=== PATIENT | male | born 1985 | race African-American/Black ===

== ENCOUNTER 2017-12-07 10:07 | Emergency (ER) | payer MEDICAID ==
[2017-12-07] MEDS ORDERED: predniSONE 20 MG TABLET PO STA (12:48)
[2017-12-07] MEDS ORDERED: diphenhydrAMINE 25 MG CAPSULE PO STA (12:49)
[2017-12-07 12:59] VITALS: BP 96/78
--- NOTE | 2017-12-07 13:02 | ED Physician Documentation ---
PD HPI SKIN - Stated complaint Stated Complaint: BEE STINGS - Chief complaint Chief Complaint: Wound - History obtained from History obtained from: Patient - History of Present Illness Timing - onset: How many weeks ago (1) Timing - details: Abrupt onset Quality / character: Itchy, Painful, Raised Associated symptoms: No: Fever Contributing factors: Insect bite /sting Similar symptoms before: No diagnosis Recently seen: Not recently seen - Additional information Additional information: Patient is a 32 year old male presenting to the emergency department for worsening rash secondary to bee stings. patient states that he was stung by multiple bees about a week ago. Patient states that the swelling has persisted. Patient had taken a motrin but had not taken any antihistamines. Review of Systems Constitutional: denies: Fever, Chills Respiratory: denies: Dyspnea, Cough, Wheezing PD PAST MEDICAL HISTORY - Past Medical History Past Medical History: No Cardiovascular: None Respiratory: None Endocrine/Autoimmune: None GI: None : None HEENT: None Psych: None Musculoskeletal: None Derm: None - Past Surgical History Past Surgical History: Yes Ortho: Knee replacement, Other - Present Medications Home Medications: Ambulatory Orders Medication Instructions Recorded Confirmed Cephalexin [Keflex] 500 mg PO Q6H 7 Days capsule 12/07/17 predniSONE [Prednisone] 40 mg PO DAILY 5 Days tablet 12/07/17 - Allergies Allergies/Adverse Reactions: Allergies Allergy/AdvReac Type Severity Reaction Status Date / Time shellfish derived Allergy Unknown Verified 12/07/17 10:14 - Social History Does the pt smoke?: Yes Smoking Status: Current every day smoker Does the pt drink ETOH?: Yes Does the pt have substance abuse?: No - Immunizations Immunizations are current?: No PD ED PE NORMAL - HEENT HEENT: Other (no facial swelling) - Cardiac Cardiac: RRR - Respiratory Respiratory: No respiratory distress, Clear bilaterally PD ED PE EXPANDED - Respiratory Respiratory: Clear to ausultation suzan. No: Distress, Labored, Stridor, Wheezing - Derm SKin visual: 1 - rash (erythema and induration and hives) Results - Vitals Vitals: Vital Signs - 24 hr 12/07/17 12/07/17 10:18 12:59 Temperature 36.5 C 36.8 C Heart Rate 66 69 Respiratory 16 16 Rate Blood Pressure 120/74 96/78 O2 Saturation 100 98 Oxygen O2 Source Room air PD MEDICAL DECISION MAKING - ED course Complexity details: reviewed old records, reviewed results, re-evaluated patient , considered differential, d/w patient ED course: Patient was seen and examined at bedside. patient had a diffuse rash on his right upper extremity. patient was treated with prednisone but was to take the benadryl at home so that he could drive. patient was given detailed discharge instructions including superimposed infection. Patient understood and was stable for discharge with outpatient follow up. - Sepsis Event Vital Signs: Vital Signs - 24 hr 12/07/17 12/07/17 10:18 12:59 Temperature 36.5 C 36.8 C Heart Rate 66 69 Respiratory 16 16 Rate Blood Pressure 120/74 96/78 O2 Saturation 100 98 Oxygen O2 Source Room air Departure - Departure Disposition: 01 Home, Self Care Clinical Impression: Allergic reaction to bee sting Condition: Good Instructions: ED Bite Insect Follow-Up: primary, care provider [Other] - As Needed Prescriptions: Cephalexin [Keflex] 500 mg PO Q6H 7 Days capsule predniSONE [Prednisone] 40 mg PO DAILY 5 Days tablet Comments: Your symptoms today are being caused by an allergic reaction. You have been prescribed a steroid and you can take benadryl every 6 hours. you have been prescribed and antibiotic if your symptoms don't improve and the area becomes more painful. You should return to the emergency department for worsening symptoms.
== END 2017-12-07 13:07 | disposition home or self-care (01) ==
LOC: ED 10:07
DX: T63.441A Toxic effect of venom of bees, accidental (unintentional), initial encounter (principal); R21 Rash and other nonspecific skin eruption; L53.9 Erythematous condition, unspecified; F17.200 Nicotine dependence, unspecified, uncomplicated
CPT/HCPCS: 99283; A9270; J7512

== ENCOUNTER 2018-05-23 20:06 | Outpatient (CLI) | payer MEDICAID | END 2018-05-23 20:07 | disposition critical access hospital (66) | LOC: EMS 20:06 | PROVIDERS: ATTEND Surgery | DX: M54.5 Low back pain (principal); M54.2 Cervicalgia; M25.562 Pain in left knee; W18.39XA Other fall on same level, initial encounter; Y93.01 Activity, walking, marching and hiking; Y92.480 Sidewalk as the place of occurrence of the external cause | CPT/HCPCS: A0425; A0429; A0999 ==

== ENCOUNTER 2018-05-23 20:22 | Emergency (ER) | payer MEDICAID ==
--- NOTE | 2018-05-23 20:32 | ED Physician Documentation ---
PD HPI Fall - Stated complaint Stated Complaint: GLF - History obtained from History obtained from: Patient, EMS - History of Present Illness Mechanism of injury: Tripped, Lost balance (he says he was walking on sidewalk and tripped/fell forward, striking hands and knees, chest and chin. Denies LOC. EMS found patient lying on sidewalk. Less responsive/alertness. Patient reported alcohol use this evening.) Timing - onset: How many hours ago (30), Today Injury(ies) location: Face, Chest, Right Upper Extremity, Left Uppper Extremity, Right Lower Extremity, Left Lower Extremity Quality of pain: Aching Associated symptoms: AMS (slurred speech and sleepy). No: LOC, Seizures, Weakness, Paresthesias, Nausea / vomiting Worsens with: Movement (of knees and hands, some pain with deep breathing on anterior chest. Pain in thoracolumbar area back with movement and breathing. Denies pain in neck.), Palpation Contributing factors: Intoxicated. No: Anticoagulated Similar symptoms before: Has not had sx before Recently seen: Not recently seen Review of Systems Unable to obtain: Intoxicated Constitutional: denies: Fever Throat: denies: Dental pain / toothache, Sore throat Cardiac: reports: Chest pain / pressure. denies: Palpitations Respiratory: denies: Dyspnea, Cough, Wheezing GI: denies: Abdominal Pain, Nausea, Vomiting, Diarrhea Neurologic: reports: Generalized weakness. denies: Focal weakness, Numbness, Headache PD PAST MEDICAL HISTORY - Past Medical History Cardiovascular: None Respiratory: None Endocrine/Autoimmune: None GI: None : None HEENT: None Psych: None Musculoskeletal: None Derm: None - Past Surgical History Past Surgical History: Yes Ortho: Knee replacement, Other - Allergies Allergies/Adverse Reactions: Allergies Allergy/AdvReac Type Severity Reaction Status Date / Time bee venom protein (honey bee) Allergy Unknown Verified 05/23/18 20:28 shellfish derived Allergy Unknown Verified 05/23/18 20:28 - Social History Does the pt smoke?: Yes Smoking Status: Current every day smoker Does the pt drink ETOH?: Yes Does the pt have substance abuse?: No - Immunizations Immunizations are current?: No PD ED PE NORMAL - Vitals Vital signs reviewed: Yes - General General: Alert and oriented X 3, Well developed/nourished, Other (sleepy but rousable. oriented to person and place, knows it is Suzanna. 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 ) - HEENT HEENT: Atraumatic, Other (chin with some tenderness and small abrasion. No dental injuries noted. ) - Neck Neck: Supple, no meningeal sign, No bony TTP, No adenopathy - Cardiac Cardiac: RRR, No murmur - Respiratory Respiratory: Clear bilaterally, Other (mild anterior chestwall tenderness without crepitance. ) - Abdomen Abdomen: Soft, Non tender, No organomegaly - Back Back: No CVA TTP, Other (tender at lower thoracic/upper lumbar back across the back. 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 Knees with some tenderness, no defromity nor effusion, and he has good ROM of them. ) - Neuro Neuro: No motor deficit, No sensory deficit, Normal speech. No: Alert and oriented X 3 (to person and place and that it is before Suzanna) Eye Opening: Spontaneous Motor: Obeys Commands Verbal: Confused GCS Score: 14 Results - Vitals Vitals: Vital Signs - 24 hr 05/23/18 05/23/18 05/23/18 20:23 20:32 23:18 Temperature 36.2 C L Heart Rate 93 93 81 Respiratory 18 18 19 Rate Blood Pressure 121/78 117/82 H 101/67 O2 Saturation 95 96 95 05/24/18 05/24/18 02:54 05:11 Temperature Heart Rate 88 90 Respiratory 14 16 Rate Blood Pressure 109/76 116/85 H O2 Saturation 99 99 Oxygen O2 Source Room air - Labs Labs: Laboratory Tests 05/23/18 05/23/18 20:49 20:49 WBC 9.1 RBC 5.36 Hgb 15.7 Hct 47.4 MCV 88.3 MCH 29.2 MCHC 33.0 RDW 14.9 Plt Count 215 MPV 8.9 Neut # (Auto) 5.7 Lymph # (Auto) 2.7 [place] # (Auto) 0.6 Eos # (Auto) 0.1 Baso # (Auto) 0.0 Absolute Nucleated RBC 0.00 Nucleated RBC % 0.0 Manual Slide Review Indicated Platelet Estimate NORMAL (130-450,000) Platelet Morphology 1+ GIANT PLATELETS RBC Morph Micro Appear NORMAL APPEARANCE Sodium 140 Potassium 3.6 Chloride 104 Carbon Dioxide 27 Anion Gap 9.0 BUN 10 Creatinine 0.7 Estimated GFR (MDRD) 158 Glucose 105 H Calcium 8.6 Total Bilirubin 0.4 AST 29 ALT 22 Alkaline Phosphatase 70 Total Protein 8.5 H Albumin 4.7 Globulin 3.8 Albumin/Globulin Ratio 1.2 Lipase 27 Ethyl Alcohol 401.0 - Rads (name of study) head and neck CT Radiology: Prelim report reviewed (no fractures nor bleeding. no acute process) trunk CT (chest/abd/pelvis Radiology: Prelim report reviewed (no noted fractures nor acute organ injuries. ) PD MEDICAL DECISION MAKING - ED course Complexity details: re-evaluated patient (He slept for several hours after his initial exam and CT scans did not show any significant injuries. He awoke conversant and appropriate. He states he had general aches all over. Reexam did not show any obvious tenderness to the abdomen or chest. He does feel able to be discharged. We will give him some Tylenol and have him use it regularly.), considered differential (intoxicated and fell without obvious serious injury. However hard to tell so will get imaging to ensure no significant injuries, while awaiting time for metabolism of his blood alcohol. ), d/w patient Departure - Departure Disposition: 01 Home, Self Care Clinical Impression: Alcohol intoxication, Fall from slip, trip, or stumble, Multiple contusions Condition: Stable Record reviewed to determine appropriate education?: Yes Instructions: ED Contusion Soft Tissue, ED Alcohol Intoxication Comments: Avoid excess alcohol. Drink lots of fluids. He apparently fell while heavily intoxicated and has some bruising to the arms and legs as well as chest and chin. Your CT scans did not show any obvious fractures or organ injury. He will likely be sore for several days. Use some Tylenol or ibuprofen 3 or 4 times a day as needed for pains. Return if worse symptoms or something new evolves. Discharge Date/Time: 05/24/18 05:33
[2018-05-23] MEDS ORDERED: SODIUM CHLORIDE 0.9% 1,000 ML IV ONE (20:33)
[2018-05-23 21:09] LABS: ALBUMIN 4.7 g/dL (3.2-5.5); ALBUMIN/GLOBULIN RATIO 1.2 (1.0-2.2); BILIRUBIN,TOTAL 0.4 mg/dL (0.2-1.0); CALCIUM 8.6 mg/dL (8.5-10.3); CREATININE 0.7 mg/dL (0.6-1.2); TOTAL PROTEIN 8.5 g/dL (6.7-8.2)
[2018-05-23 21:10] LABS: BASOPHILS % (AUTO) 0.2 %; EOSINOPHILS # (AUTO) 0.1 10^3/uL (0.0-0.7); EOSINOPHILS % (AUTO) 0.6 %; HGB - HEMOGLOBIN 15.7 g/dL (14.0-18.0); LYMPHOCYTES # (AUTO) 2.7 10^3/uL (1.5-3.5); LYMPHOCYTES % (AUTO) 30.1 %; MEAN CORPUSCULAR HEMOGLOBIN 29.2 pg (27.0-31.0); MEAN CORPUSCULAR VOLUME 88.3 fL (80.0-94.0); MEAN PLATELET VOLUME 8.9 fL (7.4-11.4); MONOCYTES # (AUTO) 0.6 10^3/uL (0.0-1.0); MONOCYTES % (AUTO) 6.8 %; NEUTROPHILS # (AUTO) 5.7 10^3/uL (1.5-6.6); NEUTROPHILS % (AUTO) 62.3 %; PLT - PLATELET COUNT 215 10^3/uL (130-450); RED BLOOD COUNT 5.36 10^6/uL (4.70-6.10); RED CELL DISTRIBUTION WIDTH 14.9 % (12.0-15.0); WHITE BLOOD COUNT 9.1 x10^3/uL (4.8-10.8)
[2018-05-23 21:29] LABS: PLATELET ESTIMATE, MANUAL NORMAL (130-450,000) (NORMAL); PLATELET MORPHOLOGY 1+ GIANT PLATELETS (NORMAL); RBC MORPHOLOGY (MULTIPLE) NORMAL APPEARANCE (NORMAL)
--- NOTE | 2018-05-23 21:30 | CT Report ---
Reason: fall with head injury/headache Procedure Date: 05/23/2018 Accession Number: [id number] / [id number] Procedure: CT - Head W/O CPT Code: FULL RESULT: EXAM: CT HEAD EXAM DATE: 05/23/2018 08:49 PM. CLINICAL HISTORY: 33-year-old with fall and head strike presenting with headache. Evaluate for intracranial pathology. COMPARISON: None. TECHNIQUE: Multiaxial CT images were obtained from the foramen magnum to the vertex. Reformats: Sagittal and coronal. IV contrast: None. In accordance with CT protocol optimization, one or more of the following dose reduction techniques were utilized for this exam: automated exposure control, adjustment of mA and/or KV based on patient size, or use of iterative reconstructive technique. FINDINGS: Parenchyma: No intraparenchymal hemorrhage. No evidence of mass, midline shift, or CT findings of infarction. Child-white differentiation is distinct. Extraaxial Spaces: Normal for age. No subdural or epidural collections identified. Ventricles: Normal in size and position. Sinuses and Orbits: Imaged paranasal sinuses, orbits, and mastoids show no significant abnormality. Bones: No evidence of fracture or calvarial defect. Other: None. IMPRESSION: 1. No definite acute intracranial pathology seen; specifically, no acute infarct, acute intracranial hemorrhage, mass, hydrocephalus, or midline shift. 2. No calvarial fracture. RADIA
--- NOTE | 2018-05-23 21:32 | CT Report ---
Reason: fall with scapular area back pain Procedure Date: 05/23/2018 Accession Number: [id number] / [id number] Procedure: CT - Chest W/O CPT Code: FULL RESULT: EXAM: CT CHEST EXAM DATE: 05/23/2018 08:56 PM. CLINICAL HISTORY: Fall with scapular area back pain. COMPARISONS: ABDOMEN/PELVIS W/O 05/23/2018 8:56 PM. TECHNIQUE: Routine helical CT imaging was performed through the chest. IV contrast: None. Reconstructions: Coronal and sagittal. In accordance with CT protocol optimization, one or more of the following dose reduction techniques were utilized for this exam: automated exposure control, adjustment of mA and/or KV based on patient size, or use of iterative reconstructive technique. FINDINGS: Lungs/Pleura: No suspicious nodularity, mass, or consolidation. No pleural effusions. No endobronchial or endotracheal lesion. Mediastinum: Imaged portions of the thyroid are grossly unremarkable. Thoracic aorta and main pulmonary artery are normal caliber. Heart size is within normal limits. No pericardial effusion. Lymph Nodes: No mediastinal, hilar, or axillary adenopathy. Bones: No suspicious osseous lesions. Visualized chest wall is grossly unremarkable. Partially Imaged Upper Abdomen: No acute abnormalities. IMPRESSION: No acute unenhanced abnormalities. RADIA
--- NOTE | 2018-05-23 21:33 | CT Report ---
Reason: fall with neck pain Procedure Date: 05/23/2018 Accession Number: [id number] / [id number] Procedure: CT - Cervical Spine W/O CPT Code: FULL RESULT: EXAM: CT CERVICAL SPINE WITHOUT CONTRAST DATE: 05/23/2018 08:50 PM. HISTORY: Fall with neck pain. COMPARISONS: None. TECHNIQUE: Thin-section axial images were acquired of the cervical spine without contrast. Post-processing: Coronal and sagittal reformats. Other: None. In accordance with CT protocol optimization, one or more of the following dose reduction techniques were utilized for this exam: automated exposure control, adjustment of mA and/or KV based on patient size, or use of iterative reconstructive technique. FINDINGS: Alignment: Straightening of the normal cervical lordosis with no significant scoliosis or spondylolisthesis. Bones: No fracture or bone lesion. Interspace Levels/Facets: C1-C2: Unremarkable. C2-C3: Unremarkable. C3-C4: Unremarkable. C4-C5: Unremarkable. C5-C6: Unremarkable. C6-C7: Unremarkable. C7-T1: Unremarkable. Musculature: Normal. No fatty atrophy. Other: The paravertebral and prevertebral soft tissues are unremarkable. The lung apices are clear. IMPRESSION: 1. No acute fracture or traumatic subluxation. RADIA
--- NOTE | 2018-05-23 21:35 | CT Report ---
Reason: fall with pain whole trunk Procedure Date: 05/23/2018 Accession Number: [id number] / [id number] Procedure: CT - Abdomen/Pelvis W/O CPT Code: FULL RESULT: EXAM: CT ABDOMEN AND PELVIS (CT KUB) EXAM DATE: 05/23/2018 09:17 PM. CLINICAL HISTORY: Fall with pain whole trunk. COMPARISONS: None TECHNIQUE: Routine helical CT imaging was performed through the abdomen and pelvis without intravenous contrast. Lack of intravenous contrast can at times limit scan sensitivity, particularly for the detection of intraparenchymal and vascular pathology. Reconstructions: Coronal and sagittal. In accordance with CT protocol optimization, one or more of the following dose reduction techniques were utilized for this exam: automated exposure control, adjustment of mA and/or KV based on patient size, or use of iterative reconstructive technique. FINDINGS: ABDOMEN: Liver: Diffuse hepatic steatosis with focal sparing at the gallbladder fossa. Gallbladder/Bile Ducts: Gallbladder is unremarkable. Visualized biliary tree is normal caliber. Spleen: Unremarkable. Pancreas: Unremarkable. Adrenal Glands: Unremarkable. Kidneys: No calculi or hydronephrosis. Peritoneum/Mesentery/Bowel: No free fluid, free air, or collection. No intestinal obstruction or inflammation. The appendix is within normal limits. Lymph nodes: No mesenteric, periportal, or retroperitoneal lymphadenopathy. PELVIS: The bladder is unremarkable for the degree of distention. Prostate is present. No pelvic lymphadenopathy. Retroperitoneum: Abdominal aorta is nonaneurysmal. Bones: No suspicious osseous lesions. IMPRESSION: No acute unenhanced abnormalities. Diffuse hepatic steatosis. RADIA
[2018-05-24 05:13] VITALS: BP 116/85
[2018-05-24] MEDS ORDERED: ACETAMINOPHEN 325 MG TABLET PO STA (05:13)
== END 2018-05-24 05:33 | disposition home or self-care (01) ==
LOC: EDUNIT# → ED 20:22
DX: F10.129 Alcohol abuse with intoxication, unspecified (principal); S00.81XA Abrasion of other part of head, initial encounter; S60.419A Abrasion of unspecified finger, initial encounter; S40.029A Contusion of unspecified upper arm, initial encounter; S80.10XA Contusion of unspecified lower leg, initial encounter; T14.8XXA Other injury of unspecified body region, initial encounter; W01.0XXA Fall on same level from slipping, tripping and stumbling without subsequent striking against object, initial encounter; Y93.01 Activity, walking, marching and hiking; Y92.480 Sidewalk as the place of occurrence of the external cause; F17.200 Nicotine dependence, unspecified, uncomplicated
CPT/HCPCS: 36415; 70450; 71250; 72125; 74176; 80053; 80320; 83690; 85025; 96360; 96361; 99284; A9270

== ENCOUNTER 2020-02-21 11:44 | Emergency (ER) | payer MEDICAID ==
--- NOTE | 2020-02-21 12:16 | ED Physician Documentation ---
History of Present Illness - Stated complaint Stated Complaint: RIB PX/BACK PX - Chief complaint Chief Complaint: Back Pain - History obtained from History obtained from: Patient - Additonal information Additional information: 34 yo M w/ no significant pmh presents with left thoracic back pain. 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 No falls or blunt trauma to the area. Has been continuing with work and taking ibuprofen/tylenol, but today pain seems worse. Worse w/ certain movements, particularly reaching overhead. No extremity weakness, no change in bowel/bladder function. No fever, chills or dyspnea. Does have a cough though states he smokes and this is normal for him. Didn't take any meds today for this issue. PD PAST MEDICAL HISTORY - Past Medical History Cardiovascular: None Respiratory: None Neuro: None Endocrine/Autoimmune: None GI: None : None HEENT: None Psych: None Musculoskeletal: None Derm: None - Past Surgical History Past Surgical History: Yes Ortho: Knee replacement, Other - Present Medications Home Medications: Ambulatory Orders Medication Instructions Recorded Confirmed HYDROcod/ACETAM 5/325 [[place] 5/325] 1 each PO Q12H PRN #6 tablet 02/21/20 Ibuprofen [Motrin] 800 mg PO Q8H PRN #30 tablet 02/21/20 Lidocaine Patch 5% [Lidoderm Patch] 1 patch TOP DAILY PRN #10 patch 02/21/20 - Allergies Allergies/Adverse Reactions: Allergies Allergy/AdvReac Type Severity Reaction Status Date / Time bee venom protein (honey bee) Allergy Unknown Verified 02/21/20 12:09 shellfish derived Allergy Unknown Verified 02/21/20 12:09 - Social History Does the pt smoke?: Yes Smoking Status: Current every day smoker Does the pt drink ETOH?: Yes Does the pt have substance abuse?: No - Immunizations Immunizations are current?: No - POLST Patient has POLST: No PD ED PE NORMAL - Vitals Vital signs reviewed: Yes - General General: Alert and oriented X 3, No acute distress, Well developed/nourished - HEENT HEENT: Atraumatic, Moist mucous membranes - Neck Neck: Supple, no meningeal sign, No JVD - Cardiac Cardiac: RRR, No murmur, No gallop, No rub - Respiratory Respiratory: No respiratory distress, Clear bilaterally - Abdomen Abdomen: Normal bowel sounds, Soft, Non tender, Non distended - Back Back: No CVA TTP, No spinal TTP, Other (pain of the left thoracic paraspinal muscles: lats and serratus. ) - Derm Derm: Normal color, Warm and dry, No rash Results - Vitals Vitals: Vital Signs - 24 hr 02/21/20 12:09 Temperature 37.0 C Heart Rate 83 Respiratory 18 Rate Blood Pressure 123/74 O2 Saturation 96 Oxygen O2 Source Room air PD MEDICAL DECISION MAKING - ED course Complexity details: considered differential, d/w patient ED course: 34 yo M presented w/ left thoracic back pain after lifting furniture. Pain with strain and stretch of the left last and thoracic paraspinal muscles. No UE weakness or suggestion of spinal cord involvement. Will treat with prn pain control and rest. Return precautions reviewed w/ pt. Departure - Departure Disposition: Home, Self Care Clinical Impression: Strain of thoracic back region Condition: Good Prescriptions: Lidocaine Patch 5% [Lidoderm Patch] 1 patch TOP DAILY PRN #10 patch PRN Reason: pain Ibuprofen [Motrin] 800 mg PO Q8H PRN #30 tablet PRN Reason: PAIN &/OR FEVER HYDROcod/ACETAM 5/325 [[place] 5/325] 1 each PO Q12H PRN #6 tablet PRN Reason: Pain Comments: You presented w/ left thoracic back strain. You may take ibuprofen, tylenol, and I have prescribed a lidocaine patch for the area and a short-term prescription for vicodin to take only if pain is severe. Avoid lifting and twisting until pain improves. You may try massage and heating pad as well. If no improvement in 2-3 weeks, follow up with your primary doctor. Forms: Activity restrictions
[2020-02-21] MEDS ORDERED: KETOROLAC 30 MG/ML VIAL IM STA (12:27)
[2020-02-21 12:50] VITALS: BP 128/76
== END 2020-02-21 12:50 | disposition home or self-care (01) ==
LOC: ED 11:44
DX: S29.012A Strain of muscle and tendon of back wall of thorax, initial encounter (principal); X50.0XXA Overexertion from strenuous movement or load, initial encounter; Y99.0 Civilian activity done for income or pay; F17.200 Nicotine dependence, unspecified, uncomplicated
CPT/HCPCS: 96372; 99281; 99283

== ENCOUNTER 2020-06-20 08:03 | Outpatient (CLI) | payer MEDICAID ==
--- NOTE | 2020-06-20 21:09 | XRAY Report ---
PROCEDURE: Knee Standing LT INDICATIONS: ARTHRITIS, LEFT KNEE TECHNIQUE: 4 views of the left knee, and 1 views of the right knee. COMPARISON: 04/21/2016 and 03/24/2016. FINDINGS: Bones: No acute fractures or dislocations. Stable open reduction internal fixation of left lateral t ibial plateau fracture with lateral plate and screw fixation. Postsurgical alignment is stable. No ev idence for hardware loosening or failure. No suspicious bony lesions. Joint spaces appear normal wit h weightbearing. Soft tissues: No knee joint effusions. No suspicious soft tissue calcification. IMPRESSION: Status post open reduction and internal fixation of left lateral tibial plateau fracture in stable al ignment with no evidence for hardware complication. Reviewed by: Phil Mejias MD on 06/20/2020 9:07 PM PST Approved by: Phil Mejias MD on 06/20/2020 9:07 PM PST Station ID: [id number]
== END 2020-06-20 23:59 | disposition home or self-care (01) ==
LOC: DI.N 08:03
PROVIDERS: ATTEND Physician Assistant
DX: M13.862 Other specified arthritis, left knee (principal); S82.145D Nondisplaced bicondylar fracture of left tibia, subsequent encounter for closed fracture with routine healing

== ENCOUNTER 2021-02-26 05:58 | Emergency (ER) | payer MEDICAID ==
--- NOTE | 2021-02-26 07:06 | ED Physician Documentation ---
History of Present Illness - Stated complaint Stated Complaint: LT FINGER SWELLING - Chief complaint Chief Complaint: Ext Problem - History obtained from History obtained from: Patient - Additonal information Additional information: 35yM with pmh OA, PSH knee replacement p/w L fourth finger swelling and pain X 6 months. patient states he had to take his wedding ring off due to proximal joint swelling of L 4th finger. he is ambidextrous and states the pain is worse with making a fist and pressing on the joint. does not know of any trauma to the finger. Review of Systems Musculoskeletal: reports: Extremity pain, Joint pain PD PAST MEDICAL HISTORY - Past Medical History Past Medical History: Yes Cardiovascular: None Respiratory: None Neuro: None Endocrine/Autoimmune: None GI: None : None HEENT: None Psych: None Musculoskeletal: None Derm: None - Past Surgical History Past Surgical History: Yes Ortho: Knee replacement, Other - Present Medications Home Medications: Ambulatory Orders Medication Instructions Recorded Confirmed No Known Home Medications 02/26/21 02/26/21 - Allergies Allergies/Adverse Reactions: Allergies Allergy/AdvReac Type Severity Reaction Status Date / Time bee venom protein (honey bee) Allergy Unknown Verified 02/26/21 06:11 shellfish derived Allergy Unknown Verified 02/26/21 06:11 - Social History Does the pt smoke?: Yes Smoking Status: Current every day smoker Does the pt drink ETOH?: Yes Does the pt have substance abuse?: No - Immunizations Immunizations are current?: No - POLST Patient has POLST: No PD ED PE NORMAL - Vitals Vital signs reviewed: Yes - General General: Alert and oriented X 3, No acute distress, Well developed/nourished - HEENT HEENT: Atraumatic, PERRL, EOMI - Derm Derm: Normal color, Warm and dry - Extremities Extremities: Other (L fourth PIP joint discomfort to palpation. FROM. 2+ BL radial pulses, normal sensation and cap refill) - Neuro Neuro: Alert and oriented X 3 - Psych Psych: Normal mood, Normal affect Results - Vitals Vitals: Vital Signs - 24 hr 02/26/21 02/26/21 06:11 06:14 Temperature 36.3 C L 36.3 C L Heart Rate 72 72 Respiratory 16 16 Rate Blood Pressure 112/74 112/74 O2 Saturation 98 98 Oxygen O2 Source Room air PD MEDICAL DECISION MAKING - ED course ED course: 35yM presents with atraumatic finger pain X 6 months. xray noncontributory. education given about symptom management. return precautions given. patient will f/u with PMD. Departure - Departure Disposition: 01 Home, Self Care Clinical Impression: Swelling of finger joint of left hand, Arthritis Condition: Good Instructions: ANTI-INFLAMMATORY, General, ED RICE Comments: You were seen in the emergency department for left ring finger joint swelling and pain. Your x-ray did not show a break in the bone. Please take ibuprofen 600 mg every 6 hours as needed for pain and to reduce swelling. Do not take it with other NSAIDs. Please check if your arthritis medication contains NSAIDs before taking with ibuprofen. Return to the emergency department if you have any new or worsening symptoms or other concerns.Follow-up with your primary doctor.
[2021-02-26 07:09] VITALS: BP 112/72
--- NOTE | 2021-02-26 08:05 | XRAY Report ---
PROCEDURE: Finger(s) LT INDICATIONS: L ring finger swelling X several months TECHNIQUE: AP hand, 3 views of the left fourth finger(s) acquired. COMPARISON: None FINDINGS: Bones: No fractures or dislocations. No suspicious bony lesions. Soft tissues: No suspicious soft tissue calcifications. Soft tissue swelling noted in the fourth fin praveena adjacent to the fourth PIP joint. IMPRESSION: No fracture. No osseous lesion. If there are persistent symptoms or continued clinical concern for pa thology, then repeat plain film radiographs (7-10 days) or advanced imaging (CT, MR, bone scan) shoul d be considered for further evaluation. Reviewed by: Kirsten Pulido MD, PhD on 02/26/2021 8:03 AM PDT Approved by: Kirsten Pulido MD, PhD on 02/26/2021 8:03 AM PDT Station ID: [id number]
== END 2021-02-26 07:07 | disposition home or self-care (01) ==
LOC: ED 05:58
DX: M79.89 Other specified soft tissue disorders (principal); M79.645 Pain in left finger(s); M19.042 Primary osteoarthritis, left hand; F17.200 Nicotine dependence, unspecified, uncomplicated
CPT/HCPCS: 99281; 99283

== ENCOUNTER 2023-05-04 15:47 | Emergency (ER) | payer MEDICAID ==
[2023-05-04 16:06] VITALS: BP 124/91; O2SAT 96
--- NOTE | 2023-05-04 16:18 | ED Physician Documentation ---
History of Present Illness - Stated complaint Stated Complaint: BILAT HAND SWELLING/LT KNEE PX - Chief complaint Chief Complaint: General - Additonal information Additional information: Decided 38-year-old male presents emergency department intoxicated and smelling heavily of alcohol. He reports that he had a total left knee replacement about 7 years ago. Since then occasionally has pain in the left knee but now has some pain that radiates up to the left and right hips. He denies falls or trauma. No fevers. He has a normal gait in the exam room. 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 He does wear gloves but his hands get very cold and at the end of the night his hands hurt him quite a bit. Sometimes they are swollen. Patient reports that because of the hand and hip pain he drinks heavily at least 5 tall boys a day. I offered him the opportunity to consider detox but he states that he cannot go to detox right now because he simply cannot stop working as he has too many bills to pay. We discussed his chronic concerns of hand pain and knee and joint pain and I recommended follow-up with a primary care doctor. He states he will try and find 1. Review of Systems Constitutional: denies: Fever, Chills Nose: reports: Reviewed and negative Cardiac: reports: Reviewed and negative Respiratory: reports: Reviewed and negative Skin: denies: Rash, Lesions Musculoskeletal: reports: Extremity pain, Joint pain PD PAST MEDICAL HISTORY - Past Medical History Past Medical History: Yes Cardiovascular: None Respiratory: None Neuro: None Endocrine/Autoimmune: None GI: None : None HEENT: None Psych: Anxiety Musculoskeletal: None Derm: None - Past Surgical History Past Surgical History: Yes Ortho: Knee replacement, Other - Present Medications Home Medications: Ambulatory Orders Medication Instructions Recorded Confirmed No Known Home Medications 02/26/21 05/04/23 - Allergies Allergies/Adverse Reactions: Allergies Allergy/AdvReac Type Severity Reaction Status Date / Time bee venom protein (honey bee) Allergy Unknown Verified 02/26/21 06:11 shellfish derived Allergy Unknown Verified 02/26/21 06:11 - Social History Does the pt smoke?: Yes Smoking Status: Current every day smoker Does the pt drink ETOH?: Yes Does the pt have substance abuse?: No Substance Use and Type: Marijuana - Immunizations Immunizations are current?: No - POLST Patient has POLST: No PD ED PE NORMAL - General General: Alert and oriented X 3. No: No acute distress (Smells heavily of alcohol) - HEENT HEENT: Atraumatic - Cardiac Cardiac: RRR, No murmur - Respiratory Respiratory: No respiratory distress, Clear bilaterally - Abdomen Abdomen: Normal bowel sounds, Soft - Extremities Extremities: No deformity, No tenderness to palpate, Normal ROM s pain, No edema (Normal exam of both hands without swelling or tenderness elicited. Normal nailbeds without nevi noted. Normal flexion extension at the wrist. No tenderness.), Other (Normal gait. No pain elicited with palpation of the lower lumbar spine. Full range of motion with forward flexion. Scar noted on the lef t lateral knee. Normal flexion extension left knee. 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 He admits that he drinks heavily each day because of the pain. He underwent a total knee replacement on the left side about 7 years ago and since then at the end of the day he finds that he has pain in both his hips. On exam today he has a normal gait with no tenderness or laxity elicited with evaluation of the knee. No midline lumbar tenderness. Full forward flexion. He also reported bilateral hand pain but this seems to stem from handling of frozen fish at his job. There is no pain tenderness swelling or abnormalities noted of the hands today. This seems to be related to constant cold exposure at work. Though the patient is tipsy he reports that his aunt drove him to the hospital and will drive him home. There is no acute medical condition found today. I did offer him the opportunity for labs and to speak with [facility]ita but he stated that he was not interested in detox as he could not afford to be away from work at this time. I gave him the information for Namita should he become ready to enter into detox. Departure - Departure Disposition: 01 Home, Self Care Clinical Impression: Alcohol abuse Hand pain Qualifiers: Laterality: bilateral Qualified Code(s): M79.641 - Pain in right hand; M79.642 - Pain in left hand Comments: Juan Alberto brush came to the emergency department today because you are reporting that when you work at the [employer] facility at night, the fish are cold and you are handling large blocks of ice in your hands began to hurt despite wearing gloves. The exam of your hands today is normal. You are also reporting pain in your left knee and hips after your knee replacement. You are also reporting that you are drinking heavily each day though you are not ready to go to detox. When you are ready to go to detox I recommend that you call [facility]. Stopping drinking suddenly could be dangerous or even life-threatening. It is important you discuss your concerns of your knee and joint pain with a primary doctor. You may benefit from referral to physical therapy. Other Name: [facility] Address: [address] [place] [address] , [facility], [address]
== END 2023-05-04 16:30 | disposition home or self-care (01) ==
LOC: ED 15:47
DX: F10.129 Alcohol abuse with intoxication, unspecified (principal); M79.642 Pain in left hand; M79.641 Pain in right hand; F17.200 Nicotine dependence, unspecified, uncomplicated
CPT/HCPCS: 99282; 99283

== ENCOUNTER 2023-05-10 17:45 | Outpatient (CLI) | payer MEDICAID ==
[2023-05-10 21:03] LABS: HCT - HEMATOCRIT 44.2 % (42.0-52.0); HGB - HEMOGLOBIN 15.1 g/dL (14.0-18.0); MEAN CORPUSCULAR HEMOGLOBIN 29.4 pg (27.0-31.0); MEAN CORPUSCULAR HGB CONC 34.2 g/dL (32.0-36.0); MEAN PLATELET VOLUME 10.6 fL (7.4-11.4); RED BLOOD COUNT 5.14 10^6/uL (4.70-6.10); RED CELL DISTRIBUTION WIDTH 14.1 % (12.0-15.0); WHITE BLOOD COUNT 6.1 x10^3/uL (4.8-10.8)
[2023-05-10 21:18] LABS: ALBUMIN 4.8 g/dL (3.2-5.5); ALBUMIN/GLOBULIN RATIO 1.4 (1.0-2.2); ALKALINE PHOSPHATASE 62 IU/L (42-121); ALT ALANINE AMINOTRANSFERASE 14 IU/L (10-60); AST ASPARTATE AMINOTRANSFERASE 21 IU/L (10-42); BILIRUBIN,TOTAL 0.3 mg/dL (0.2-1.0); BUN - BLOOD UREA NITROGEN 8 mg/dL (6-20); CALCIUM 9.4 mg/dL (8.5-10.3); CARBON DIOXIDE - CO2 30 mmol/L (21-32); CHLORIDE 104 mmol/L (101-111); CREATININE 0.5 mg/dL (0.6-1.3); CRP - C-REACTIVE PROTEIN < 0.5 mg/dL (<0.5); GFR - MDRD 227 (>89); GLUCOSE 95 mg/dL (74-104); POTASSIUM 3.7 mmol/L (3.5-4.5); SODIUM 143 mmol/L (135-145); TOTAL PROTEIN 8.2 g/dL (6.4-8.9); URIC ACID 4.7 mg/dL (4.4-7.6)
[2023-05-10 21:32] LABS: THYROID STIMULATING HORMONE 0.76 uIU/mL (0.34-5.60)
[2023-05-10 21:59] LABS: RHEUMATOID FACTOR NEGATIVE (Negative)
[2023-05-12 20:07] LABS: CYCLIC CITRULLINATED PEP IGG/A 1 units (0-19)
[2023-05-13 15:08] LABS: ANTINUCLEAR ANTIBODIES IFA Negative (.)
== END 2023-05-10 18:00 | disposition home or self-care (01) ==
LOC: LAB.N 17:45
PROVIDERS: ATTEND Family Medicine
DX: M25.50 Pain in unspecified joint (principal)
CPT/HCPCS: 36415; 80053; 84443; 84550; 85027; 85651; 86038; 86140; 86200; 86430

== ENCOUNTER 2023-07-10 17:35 | Emergency (ER) | payer MEDICAID ==
--- NOTE | 2023-07-10 19:24 | XRAY Report ---
PROCEDURE: Knee 4+V LT INDICATIONS: L knee pain TECHNIQUE: 4 views of the knee(s) were acquired. COMPARISON: None. FINDINGS: Bones: No fractures or dislocations. Plate-screw fixation of the proximal tibia. Hardware appears in tact without strain fracture or lucency. No suspicious bony lesions. Soft tissues: No knee joint effusion. No suspicious soft tissue calcifications or masses. IMPRESSION: No acute bony abnormality. Stable appearance of hardware without evidence of interval complication. Reviewed by: Khurram Friedman MD on 07/10/2023 7:23 PM PST Approved by: Khurram Friedman MD on 07/10/2023 7:23 PM PST Station ID: [id number]
--- NOTE | 2023-07-10 19:25 | XRAY Report ---
PROCEDURE: Hand 3+V LT INDICATIONS: hand pain TECHNIQUE: 3 views of the hand(s) acquired. COMPARISON: 02/26/2021. FINDINGS: Bones: No fractures or dislocations. No suspicious bony lesions. Soft tissues: No suspicious soft tissue calcifications or masses. IMPRESSION: No acute bony abnormality. Reviewed by: Khurram Friedman MD on 07/10/2023 7:24 PM PST Approved by: Khurram Friedman MD on 07/10/2023 7:24 PM PST Station ID: [id number]
--- NOTE | 2023-07-10 20:31 | ED Physician Documentation ---
History of Present Illness - Stated complaint Stated Complaint: LT KNEE PX/LOCKED UP/FINGER PX - Chief complaint Chief Complaint: Ext Problem - History obtained from History obtained from: Patient - History of Present Illness Timing: How many weeks ago (several weeks) Pain level max: 7 Pain level now: 7 - Additonal information Additional information: 38-year-old male presents to the emergency department with swelling to the left 5th digit PIP joint and pain to the L knee. Patient had a traumatic event to th e left knee where a pallet of fish fell onto the knee. Requiring surgical ORIF. No redness to either site. No fevers. No recurrent trauma. Has not taken anything for pain. No history of gout. No history of septic joint. No new trauma. No numbness or tingling. Review of Systems Constitutional: denies: Fever, Chills GI: denies: Vomiting, Diarrhea Skin: denies: Rash PD PAST MEDICAL HISTORY - Past Medical History Past Medical History: Yes Cardiovascular: None Respiratory: None Neuro: None Endocrine/Autoimmune: None GI: None : None HEENT: None Psych: Anxiety Musculoskeletal: None Derm: None - Past Surgical History Past Surgical History: Yes Ortho: Knee replacement, Other - Present Medications Home Medications: Ambulatory Orders Medication Instructions Recorded Confirmed HYDROcod/ACETAM 5/325 [Dryden 5/325] 1 - 2 ea PO Q6H PRN #14 tablet 07/10/23 Meloxicam [Mobic] 7.5 mg PO BID PRN #20 tablet 07/10/23 - Allergies Allergies/Adverse Reactions: Allergies Allergy/AdvReac Type Severity Reaction Status Date / Time bee venom protein (honey bee) Allergy Unknown Verified 07/10/23 17:40 shellfish derived Allergy Unknown Verified 07/10/23 17:40 - Social History Does the pt smoke?: Yes Smoking Status: Current every day smoker Does the pt drink ETOH?: Yes Does the pt have substance abuse?: No - Immunizations Immunizations are current?: No - POLST Patient has POLST: No PD ED PE NORMAL - Vitals Vital signs reviewed: Yes - General General: Alert and oriented X 3, No acute distress - HEENT HEENT: Moist mucous membranes - Neck Neck: Supple, no meningeal sign - Cardiac Cardiac: RRR - Respiratory Respiratory: No respiratory distress, Clear bilaterally - Derm Derm: Warm and dry - Extremities Extremities: Other - Neuro Neuro: Alert and oriented X 3 - Free text exam Free text exam: left hand fifth digit shows swelling at the PIP joint. No erythema. No streaking. No bruising. No palmar tenderness. Limited range of motion secondary to pain. Left knee shows a healed surgical scar. No joint effusion. No ligamentous laxity. Tenderness over the left tibial plateau near the hardware. Neurovascular intact. Results - Vitals Vitals: Vital Signs - 24 hr 07/10/23 07/10/23 17:40 20:33 Temperature 36.5 C Heart Rate 90 95 Respiratory 16 18 Rate Blood Pressure 150/85 H 124/86 H O2 Saturation 99 98 Oxygen O2 Source Room air - Rads (name of study) L hand xray Relevant Findings:: Final report received, See rad report L knee xray Relevant Findings:: Final report received, See rad report PD Medical Decision Making - ED course Complexity details: reviewed results, re-evaluated patient, considered differential, d/w patient ED course: 38-year-old male with swelling to the left fifth digit, likely a sprain, he works a physical job and works with his hands, not uncommon to have trauma throughout the day. Does not appear infected. No evidence of septic joint. No palmar tenderness. Also pain in the left knee, near the surgical hardware. Hardware is not loosened on x-ray. No evidence of septic joint. Full range of motion of the knee present. No ligamentous laxity. Patient is well-appearing, nontoxic. Afebrile. Given Toradol and dexamethasone here. Will prescribe pain medication for home. Recommend he follow-up with his orthopedist to determine if the hardware could be causing his pain. Patient counseled regarding signs and symptoms for which I believe and urgent re-evaluation would be necessary. Patient with good understanding of and agreement to plan and is comfortable going home at this time This document was made in part using voice recognition software. While efforts are made to proofread this document, sound alike and grammatical errors may occur. Departure - Departure Disposition: 01 Home, Self Care Clinical Impression: Finger pain, left Knee pain Qualifiers: Chronicity: chronic Laterality: left Qualified Code(s): M25.562 - Pain in left knee Condition: Good Instructions: ED Knee Pain UKO, ED Sprain Finger Follow-Up: [facility] [Provider Group] [facility] [Provider Group] Prescriptions: Meloxicam [Mobic] 7.5 mg PO BID PRN #20 tablet PRN Reason: Pain HYDROcod/ACETAM 5/325 [Dryden 5/325] 1 - 2 ea PO Q6H PRN #14 tablet PRN Reason: Pain Comments: Your x-rays do not show any acute abnormalities today. You likely have a sprain of your left pinky, this should improve over time. I would recommend that you follow-up with orthopedics for reevaluation of your need to determine if the hardware in your knee is causing issues. Please return if you worsen. [facility] [place]. I am prescribing a short course of narcotic pain medication for you. These are potentially dangerous and addictive medications that should be used carefully. These medications may constipate you. Take an [id number] stool softener (docusate) twice daily with plenty of water while taking these medications. If you go 24 hours without a bowel movement, take [id number] miralax, per package instructions. Do not drink or drive while taking these medications. If you received narcotic or sedating medications while in the emergency department, do not drive for 24 hours. Store this medication in a safe, secure place and out of reach of children. It is a violation of federal law to give or sell this medication to another person or to use in a manner other than prescribed. The ED will not refill narcotic prescriptions, including prescriptions lost or stolen. To dispose of unwanted medications: 1. [facility] at [address] in [place] has a medication drop box. They accept prescription medications (in pill form) Wednesday through Wednesday 9:00 a.m. to 5:00 p.m. 2. [facility] [employer] accepts prescription medications (in pill form only) for disposal year round. Call for more information. 3. Contact the [facility] for the next [facility] sponsored prescription drug collection event. , [phone], or [phone]; Forms: PCP List Discharge Date/Time: 07/10/23 20:43
[2023-07-10] MEDS: KETOROLAC 30 MG/ML VIAL IM STA (20:36)
[2023-07-10] MEDS: CHERRY SYRUP 10 ML UDC PO ONE (20:37)
[2023-07-10] MEDS: DEXAMETHASONE 10 MG/ML VIAL PO STA (20:37)
[2023-07-10 20:38] VITALS: BP 124/86; O2SAT 98
== END 2023-07-10 20:43 | disposition home or self-care (01) ==
LOC: ED 17:35
DX: M25.562 Pain in left knee (principal); M79.89 Other specified soft tissue disorders
CPT/HCPCS: 73130; 73564; 96372; 99283; 99284; A9270

== ENCOUNTER 2023-07-14 13:25 | Outpatient (CLI) | payer MEDICAID | END 2023-07-14 13:26 | disposition EMS.NT | LOC: EMS 13:25 | DX: M25.562 Pain in left knee (principal); R26.2 Difficulty in walking, not elsewhere classified; Z96.652 Presence of left artificial knee joint ==